=== PATIENT | male | born 1950 | race Caucasian/White ===

== ENCOUNTER 2016-07-09 03:04 | Emergency (ER) | payer MEDICARE, OTHER ==
[2016-07-09] MEDS ORDERED: Sodium Chloride 0.9% 10 ML Syringe FLUSH PRN (03:13)
[2016-07-09] MEDS ORDERED: Sodium Chloride 0.9% 1,000 ML IV SCH (03:15)
--- NOTE | 2016-07-09 03:28 | EDM.PDOC ---
ED HPI ALTERED MENTAL STATUS - General Chief Complaint: Neuro Symptoms/Deficits Stated Complaint: Altered LOC, Snoring respirations Time Seen by Provider: 07/09/16 03:12 Source of Information: Reports: EMS, EMS notes reviewed, detention records, RN, RN notes reviewed History Limitations: Reports: No limitations - History of Present Illness INITIAL COMMENTS - FREE TEXT/NARRATIVE: Patient is brought to the ED at [facility] via EMS for altered mental status and respiratory difficulty. Baseline Mental Status: Reports: alert/confused Symptom Onset Date: 07/09/16 Symptom Onset Time: 02:20 Timing/Duration: Reports: Constant Context: Reports: found by staff Treatments ATTENDANT HONOR BAR: Reports: oxygen - Related Data Allergies/ADRs: Allergies metformin Allergy (Verified 04/08/16 17:32) Muscle Aches Penicillins Allergy (Verified 04/08/16 17:32) Rash Home Meds: Home Meds Clopidogrel [Plavix] 75 mg PO DAILY #30 tablet 08/31/14 [Rx] Linagliptin [Tradjenta] 5 mg PO DAILY 08/31/14 [History] Metoprolol Tartrate [Lopressor] 50 mg PO BID 08/31/14 [History] Sertraline [Zoloft] 200 mg PO DAILY 08/31/14 [History] Simvastatin [Zocor] 40 mg PO BEDTIME 08/31/14 [History] Triamcinolone Acetonide [Kenalog 0.1% Crm] 15 gm .XX BID PRN 08/31/14 [History] glyBURIDE [Micronase] 10 mg PO BID 08/31/14 [History] Aspirin 325 mg PO DAILY 09/08/15 [History] Lisinopril 20 mg PO DAILY 09/08/15 [History] Acetaminophen [Acetaminophen 8 Hour] 650 mg PO Q4H PRN 01/12/16 [History] Nitroglycerin [Nitrostat] 0.4 mg SL ASDIRECTED PRN 01/12/16 [History] Clobetasol [Clobetasol Propionate 0.05%] 1 appful TOP BID PRN 04/08/16 [History] Past Medical History HEENT History: Reports: Macular degeneration, Other (see below) Other HEENT History: Age Related Cardiovascular History: Reports: [place], Other (see below) Other Cardiovascular History: History positive for MIs in 1995 and 2005 Other Respiratory History: Pt states he was told he had a "touch" of emphysema. Musculoskeletal History: Reports: Back pain, chronic Neurological History: Reports: CVA, TIA, Other (see below) Other Neuro History: TIA times 2 - 2013 and 2013 Psychiatric History: Reports: Anxiety, Depression, Panic attack Endocrine/Metabolic History: Reports: Diabetes, type II - Past Surgical History Cardiovascular Surgical History: Reports: Coronary artery stent Social & Family History - Family History Family Medical History: Noncontributory - Tobacco Use Smoking Status *Q: Never Smoker Used Tobacco, but Quit: No Month Tobacco Last Used: 1778 Second Hand Smoke Exposure: No - Alcohol Use Days Per Week of Alcohol Use: 0 - Recreational Drug Use Recreational Drug Use: No ED ROS GENERAL - Review of Systems Review Of Systems: Unable To Obtain - Physical Exam Exam: See Below Exam Limited By: Altered mental status General Appearance: no apparent distress, obtunded Eye Exam: bilateral eye: normal inspection, PERRL Throat/Mouth: Normal inspection, Normal oropharynx, No airway compromise Head Exam: atraumatic, normocephalic Respiratory/Chest: no respiratory distress, lungs clear, normal breath sounds, other (snoring respirations but no respiratory distress) Cardiovascular: normal peripheral pulses, regular rate, rhythm GI/Abdominal: normal bowel sounds, soft, non tender, no distention Neuro Exam (Abbreviated): unresponsive Skin Exam: Warm, Dry, Intact, Normal color, No rash EKG INTERPRETATION EKG Date: 07/09/16 Time: 03:45 Rhythm: NSR Rate (beats/min): 73 [place]: normal P-wave: present QRS: normal ST-T: normal QT: normal CA/PQ Interval: 0.14 Comparison: no change EKG Interpretation Comments: 1. NSR 2. Normal ECG Course - Vital Signs Last Recorded V/S: Last Vital Signs Temp 35.6 C 07/09/16 03:14 Pulse 73 07/09/16 03:14 Resp 24 H 07/09/16 03:14 BP 162/88 H 07/09/16 03:14 Pulse Ox 99 07/09/16 03:14 - Orders/Labs/Meds Orders: Active Orders 24 hr Category Date Time Status EKG 12 Lead [EKG Documentation Completion] [RC] STAT Care 07/09/16 03:14 Active Insert Rosado Catheter [Insert Urinary Catheter] [OM.PC] Care 07/09/16 03:30 Ordered Q24H Urinary Catheter Assessment [RC] ASDIRECTED Care 07/09/16 03:16 Active Chest 1V Frontal [CR] Stat Exams 07/09/16 03:12 Taken Head wo Cont [CT] Stat Exams 07/09/16 03:12 Taken AMMONIA [REF] Stat Lab 07/09/16 03:20 Received C-REACTIVE PROTEIN [CHEM] Stat Lab 07/09/16 03:20 Results CK W CKMB [CHEM] Stat Lab 07/09/16 03:20 Results COMPREHENSIVE METABOLIC PN,CMP [CHEM] Stat Lab 07/09/16 03:20 Results Sodium Chloride 0.9% [Normal Saline] 1,000 ml Med 07/09/16 03:15 Active IV ASDIRECTED Sodium Chloride 0.9% [Saline Flush] Med 07/09/16 03:13 Active 10 ml FLUSH ASDIRECTED PRN Peripheral IV Insertion Adult [OM.PC] Routine Oth 07/09/16 03:13 Ordered Medication Orders Sodium Chloride (Normal Saline) 1,000 mls @ 30 mls/hr IV ASDIRECTED NILES Last Admin: 07/09/16 03:15 Dose: 30 mls/hr Sodium Chloride (Saline Flush) 10 ml FLUSH ASDIRECTED PRN PRN Reason: Keep Vein Open Labs: Laboratory Tests 07/09/16 07/09/16 07/09/16 Range/Units 03:20 03:20 03:20 WBC 3.9 L (4.0-10.0) x10^3/uL RBC 3.41 L (4.5-6.0) x10^6/uL Hgb 10.1 L (14.0-18.0) g/dL Hct 30.3 L (40.0-52.0) % MCV 88.9 (78.0-93.0) fL MCH 29.6 (26.0-32.0) pg MCHC 33.3 (32.0-36.0) g/dL RDW Coeff of Tania 14.6 (10.0-15.0) % Plt Count 82 L (130-400) x10^3/uL Neut % (Auto) 69.2 (50.0-80.0) % Lymph % (Auto) 18.1 L (25.0-50.0) % [place] % (Auto) 8.3 (2.0-11.0) % Eos % (Auto) 3.9 (0.0-4.0) % Baso % (Auto) 0.5 (0.2-1.2) % PT 11.1 (10.0-12.8) SEC INR 1.0 L (2.0-3.5) POC ABG pH (7.35-7.45) POC ABG pCO2 (35-45) mmHG POC ABG pO2 (80-105) mmHG POC ABG HCO3 (22-26) mmol/L POC ABG Total CO2 (23-27) mmol/L POC ABG O2 Sat (95-98) % POC ABG Base Excess (-2-3) mmol/L POC FiO2 Sodium 140 (136-145) mmol/L Potassium 4.2 (3.5-5.1) mmol/L Chloride 104 (98-107) mmol/L Carbon Dioxide 28 (21-32) mmol/L BUN 34 H (7-18) mg/dL Creatinine 0.8 (0.70-1.30) mg/dL Est Cr Clr Drug Dosing TNP Estimated GFR (MDRD) > 60 Glucose 239 H (74-106) mg/dL Lactic Acid (0.4-2.0) mmol/L Calcium 8.9 (8.5-10.1) mg/dL Corrected Calcium 9.22 (8.5-10.1) mg/dL Total Bilirubin 0.5 (0.2-1.0) mg/dL AST 22 (15-37) U/L ALT 36 (16-63) U/L Alkaline Phosphatase 88 (46-116) U/L Creatine Kinase 46 (39-308) U/L Creatine Kinase Index 1.1 (0.0-4.0) % CK-MB (CK-2) 0.5 (0.0-3.6) ng/mL POC Troponin I (0.00-0.08) ng/mL Total Protein 6.6 (6.4-8.2) g/dL Albumin 3.6 (3.4-5.0) g/dL Globulin 3.0 Albumin/Globulin Ratio 1.20 Urine Color (YELLOW) Urine Appearance (CLEAR) Urine pH (5.0-8.0) Ur Specific [place] Urine Protein (NEGATIVE) mg/dL Urine Glucose (UA) (NEGATIVE) mg/dL Urine Ketones (NEGATIVE) mg/dL Urine Occult Blood (NEGATIVE) Urine Nitrite (NEGATIVE) Urine Bilirubin (NEGATIVE) Urine Urobilinogen (0.2) EU/dL Ur Leukocyte Esterase (NEGATIVE) Urine RBC (NOT SEEN) /HPF Urine WBC (NOT SEEN) /HPF Ur Transition Epith Cell (NEGATIVE) /HPF Amorphous Sediment Urine Bacteria (NEGATIVE) /HPF Urine Mucus (NEGATIVE) /LPF Urine Opiates Screen (NEAGTIVE) Ur Buprenorphine Scrn (NEGATIVE) Ur Oxycodone Screen (NEGATIVE) Urine Methadone Screen (NEGATIVE) Ur Barbiturates Screen (NEGATIVE) Ur Tricyclics Screen (NEGATIVE) Ur Amphetamine Screen (NEGATIVE) U Methamphetamines Scrn (NEGATIVE) Urine MDMA Screen (NEGATIVE) U Benzodiazepines Scrn (NEGATIVE) U Cocaine Metab Screen (NEGATIVE) U Marijuana (THC) Screen (NEGATIVE) 07/09/16 07/09/16 07/09/16 Range/Units 03:20 03:37 03:55 WBC (4.0-10.0) x10^3/uL RBC (4.5-6.0) x10^6/uL Hgb (14.0-18.0) g/dL Hct (40.0-52.0) % MCV (78.0-93.0) fL MCH (26.0-32.0) pg MCHC (32.0-36.0) g/dL RDW Coeff of Tania (10.0-15.0) % Plt Count (130-400) x10^3/uL Neut % (Auto) (50.0-80.0) % Lymph % (Auto) (25.0-50.0) % [place] % (Auto) (2.0-11.0) % Eos % (Auto) (0.0-4.0) % Baso % (Auto) (0.2-1.2) % PT (10.0-12.8) SEC INR (2.0-3.5) POC ABG pH (7.35-7.45) POC ABG pCO2 (35-45) mmHG POC ABG pO2 (80-105) mmHG POC ABG HCO3 (22-26) mmol/L POC ABG Total CO2 (23-27) mmol/L POC ABG O2 Sat (95-98) % POC ABG Base Excess (-2-3) mmol/L POC FiO2 Sodium (136-145) mmol/L Potassium (3.5-5.1) mmol/L Chloride (98-107) mmol/L Carbon Dioxide (21-32) mmol/L BUN (7-18) mg/dL Creatinine (0.70-1.30) mg/dL Est Cr Clr Drug Dosing Estimated GFR (MDRD) Glucose (74-106) mg/dL Lactic Acid 1.0 (0.4-2.0) mmol/L Calcium (8.5-10.1) mg/dL Corrected Calcium (8.5-10.1) mg/dL Total Bilirubin (0.2-1.0) mg/dL AST (15-37) U/L ALT (16-63) U/L Alkaline Phosphatase (46-116) U/L Creatine Kinase (39-308) U/L Creatine Kinase Index (0.0-4.0) % CK-MB (CK-2) (0.0-3.6) ng/mL POC Troponin I 0.00 (0.00-0.08) ng/mL Total Protein (6.4-8.2) g/dL Albumin (3.4-5.0) g/dL Globulin Albumin/Globulin Ratio Urine Color (YELLOW) Urine Appearance (CLEAR) Urine pH (5.0-8.0) Ur Specific [place] Urine Protein (NEGATIVE) mg/dL Urine Glucose (UA) (NEGATIVE) mg/dL Urine Ketones (NEGATIVE) mg/dL Urine Occult Blood (NEGATIVE) Urine Nitrite (NEGATIVE) Urine Bilirubin (NEGATIVE) Urine Urobilinogen (0.2) EU/dL Ur Leukocyte Esterase (NEGATIVE) Urine RBC (NOT SEEN) /HPF Urine WBC (NOT SEEN) /HPF Ur Transition Epith Cell (NEGATIVE) /HPF Amorphous Sediment Urine Bacteria (NEGATIVE) /HPF Urine Mucus (NEGATIVE) /LPF Urine Opiates Screen Negative (NEAGTIVE) Ur Buprenorphine Scrn Negative (NEGATIVE) Ur Oxycodone Screen Negative (NEGATIVE) Urine Methadone Screen Negative (NEGATIVE) Ur Barbiturates Screen Negative (NEGATIVE) Ur Tricyclics Screen Negative (NEGATIVE) Ur Amphetamine Screen Negative (NEGATIVE) U Methamphetamines Scrn Negative (NEGATIVE) Urine MDMA Screen Negative (NEGATIVE) U Benzodiazepines Scrn Negative (NEGATIVE) U Cocaine Metab Screen Negative (NEGATIVE) U Marijuana (THC) Screen Negative (NEGATIVE) 07/09/16 07/09/16 Range/Units 03:55 04:00 WBC (4.0-10.0) x10^3/uL RBC (4.5-6.0) x10^6/uL Hgb (14.0-18.0) g/dL Hct (40.0-52.0) % MCV (78.0-93.0) fL MCH (26.0-32.0) pg MCHC (32.0-36.0) g/dL RDW Coeff of Tania (10.0-15.0) % Plt Count (130-400) x10^3/uL Neut % (Auto) (50.0-80.0) % Lymph % (Auto) (25.0-50.0) % [place] % (Auto) (2.0-11.0) % Eos % (Auto) (0.0-4.0) % Baso % (Auto) (0.2-1.2) % PT (10.0-12.8) SEC INR (2.0-3.5) POC ABG pH 7.414 (7.35-7.45) POC ABG pCO2 41 (35-45) mmHG POC ABG pO2 103 (80-105) mmHG POC ABG HCO3 26 (22-26) mmol/L POC ABG Total CO2 28 H (23-27) mmol/L POC ABG O2 Sat 98 (95-98) % POC ABG Base Excess 2 (-2-3) mmol/L POC FiO2 0.28 Sodium (136-145) mmol/L Potassium (3.5-5.1) mmol/L Chloride (98-107) mmol/L Carbon Dioxide (21-32) mmol/L BUN (7-18) mg/dL Creatinine (0.70-1.30) mg/dL Est Cr Clr Drug Dosing Estimated GFR (MDRD) Glucose (74-106) mg/dL Lactic Acid (0.4-2.0) mmol/L Calcium (8.5-10.1) mg/dL Corrected Calcium (8.5-10.1) mg/dL Total Bilirubin (0.2-1.0) mg/dL AST (15-37) U/L ALT (16-63) U/L Alkaline Phosphatase (46-116) U/L Creatine Kinase (39-308) U/L Creatine Kinase Index (0.0-4.0) % CK-MB (CK-2) (0.0-3.6) ng/mL POC Troponin I (0.00-0.08) ng/mL Total Protein (6.4-8.2) g/dL Albumin (3.4-5.0) g/dL Globulin Albumin/Globulin Ratio Urine Color Dark yellow H (YELLOW) Urine Appearance Slightly cloudy H (CLEAR) Urine pH 7.0 (5.0-8.0) Ur Specific [place] 1.020 Urine Protein 30 H (NEGATIVE) mg/dL Urine Glucose (UA) Negative (NEGATIVE) mg/dL Urine Ketones Negative (NEGATIVE) mg/dL Urine Occult Blood Trace-intact H (NEGATIVE) Urine Nitrite Negative (NEGATIVE) Urine Bilirubin Negative (NEGATIVE) Urine Urobilinogen 1.0 (0.2) EU/dL Ur Leukocyte Esterase Negative (NEGATIVE) Urine RBC 5-10 H (NOT SEEN) /HPF Urine WBC Not seen (NOT SEEN) /HPF Ur Transition Epith Cell Few H (NEGATIVE) /HPF Amorphous Sediment Moderate Urine Bacteria Rare (NEGATIVE) /HPF Urine Mucus Rare H (NEGATIVE) /LPF Urine Opiates Screen (NEAGTIVE) Ur Buprenorphine Scrn (NEGATIVE) Ur Oxycodone Screen (NEGATIVE) Urine Methadone Screen (NEGATIVE) Ur Barbiturates Screen (NEGATIVE) Ur Tricyclics Screen (NEGATIVE) Ur Amphetamine Screen (NEGATIVE) U Methamphetamines Scrn (NEGATIVE) Urine MDMA Screen (NEGATIVE) U Benzodiazepines Scrn (NEGATIVE) U Cocaine Metab Screen (NEGATIVE) U Marijuana (THC) Screen (NEGATIVE) Meds: Medications Generic Name Dose Route Start Last Admin Trade Name Freq PRN Reason Stop Dose Admin Sodium Chloride 1,000 mls @ 30 mls/hr 07/09/16 03:15 07/09/16 03:15 Normal Saline IV 30 mls/hr ASDIRECTED NILES Administration Sodium Chloride 10 ml 07/09/16 03:13 Saline Flush FLUSH ASDIRECTED PRN Keep Vein Open Departure - Departure Time of Disposition: 04:29 Disposition: Home, Self-Care 01 Condition: good Clinical Impression: Chronic focal neurological deficit Instructions: Altered Mental Status Forms: ED Department Discharge ED Communication - ED Communication Date/Time Date: 07/09/16 Time Called: 04:11 - Discussed Case With (1) Discussed Case With (1): Radiologist (Dr. Nazario Dorman) - Conversation Summary Radiology Reading Discussed with Radiologist: Yes Summary Comment: No acute findings on CT of Head; CT unchanged from April 2016 - Problem List Review Problem List Initiated/Reviewed/Updated: Yes - My Orders Last 24 Hours: My Active Orders 07/09/16 03:12 Chest 1V Frontal [CR] Stat Head wo Cont [CT] Stat 07/09/16 03:13 Sodium Chloride 0.9% [Saline Flush] 10 ml FLUSH ASDIRECTED PRN Peripheral IV Insertion Adult [OM.PC] Routine 07/09/16 03:14 EKG 12 Lead [EKG Documentation Completion] [RC] STAT 07/09/16 03:15 Sodium Chloride 0.9% [Normal Saline] 1,000 ml IV ASDIRECTED 07/09/16 03:16 Urinary Catheter Assessment [RC] ASDIRECTED 07/09/16 03:20 AMMONIA [REF] Stat C-REACTIVE PROTEIN [CHEM] Stat CK W CKMB [CHEM] Stat COMPREHENSIVE METABOLIC PN,CMP [CHEM] Stat 07/09/16 03:30 Insert Rosado Catheter [Insert Urinary Catheter] [OM.PC] Q24H - Assessment/Plan Last 24 Hours: My Active Orders 07/09/16 03:12 Chest 1V Frontal [CR] Stat Head wo Cont [CT] Stat 07/09/16 03:13 Sodium Chloride 0.9% [Saline Flush] 10 ml FLUSH ASDIRECTED PRN Peripheral IV Insertion Adult [OM.PC] Routine 07/09/16 03:14 EKG 12 Lead [EKG Documentation Completion] [RC] STAT 07/09/16 03:15 Sodium Chloride 0.9% [Normal Saline] 1,000 ml IV ASDIRECTED 07/09/16 03:16 Urinary Catheter Assessment [RC] ASDIRECTED 07/09/16 03:20 AMMONIA [REF] Stat C-REACTIVE PROTEIN [CHEM] Stat CK W CKMB [CHEM] Stat COMPREHENSIVE METABOLIC PN,CMP [CHEM] Stat 07/09/16 03:30 Insert Rosado Catheter [Insert Urinary Catheter] [OM.PC] Q24H Plan: Normal CT of Head. No indications on lab work. Patient's neuro status is unchanged from detention assessments.
[2016-07-09 04:13] LABS: CHLORIDE,CL 104 mmol/L (98-107); SODIUM,NA 140 mmol/L (136-145)
[2016-07-09 05:58] VITALS: BP 191/92
== END 2016-07-09 05:30 | disposition home or self-care (01) ==
LOC: VM.ED 03:04
DX: R29.818 Other symptoms and signs involving the nervous system (principal); I25.2 Old myocardial infarction; F41.9 Anxiety disorder, unspecified; F32.9 Major depressive disorder, single episode, unspecified; E11.9 Type 2 diabetes mellitus without complications; Z79.82 Long term (current) use of aspirin; Z79.899 Other long term (current) drug therapy; Z86.73 Personal history of transient ischemic attack (TIA), and cerebral infarction without residual deficits; Z88.0 Allergy status to penicillin
CPT/HCPCS: 51702; 70450; 71010; 80053; 80305; 81001; 82140; 82550; 82553; 82803; 83605; 84484; 85025; 85610; 86140; 93005; 96360; 96361; 99285; J7030; 99284-GF

== ENCOUNTER 2016-08-08 13:59 | Emergency (ER) | payer OTHER ==
[2016-08-08] MEDS ORDERED: Sodium Chloride 0.9% 10 ML Syringe FLUSH PRN (14:07)
[2016-08-08] MEDS ORDERED: Sodium Chloride 0.9% 1,000 ML IV SCH (14:15)
[2016-08-08 14:50] VITALS: BP 102/51
[2016-08-08 14:55] LABS: CHLORIDE,CL 103 mmol/L (98-107); SODIUM,NA 140 mmol/L (136-145)
[2016-08-08] MEDS ORDERED: Pantoprazole 40 MG Vial IVPUSH ONE (15:44)
[2016-08-08] MEDS ORDERED: Levofloxacin/Dextrose 5%-Water 500 MG in Premix Bag 1 BAG IV ONE (15:44)
--- NOTE | 2016-08-08 15:50 | EDM.PDOC ---
ED HISTORY OF PRESENT ILLNESS - General Chief Complaint: Respiratory Problem Stated Complaint: breathing problems Time Seen by Provider: 08/08/16 14:01 Source of Information: Reports: EMS notes reviewed, half-way records, RN, RN notes reviewed History Limitations: Reports: No limitations - History of Present Illness INITIAL COMMENTS - FREE TEXT/NARRATIVE: Patient is brought to the emergency room at [facility] via ambulance for her breathing problems, low blood pressure, and increased lethargy. According to the assisted staff and they are concerned that the patient may have aspirated. It is unclear when the patient may have aspirated. No change in medicines, no cough. The patient has been afebrile. The assisted states that the patient's blood pressures have been in the 70s and 80s. Symptom Onset Date: 08/08/16 - Related Data Allergies/ADRs: Allergies Allergy/AdvReac Type Severity Reaction Status Date / Time metformin Allergy Muscle Verified 08/08/16 14:32 Aches Penicillins Allergy Rash Verified 08/08/16 14:32 Home Meds: Home Meds Clopidogrel [Plavix] 75 mg PO DAILY #30 tablet 08/31/14 [Rx] Linagliptin [Tradjenta] 5 mg PO DAILY 08/31/14 [History] Metoprolol Tartrate [Lopressor] 50 mg PO BID 08/31/14 [History] Sertraline [Zoloft] 200 mg PO DAILY 08/31/14 [History] Simvastatin [Zocor] 40 mg PO BEDTIME 08/31/14 [History] Triamcinolone Acetonide [Kenalog 0.1% Crm] 15 gm .XX BID PRN 08/31/14 [History] glyBURIDE [Micronase] 10 mg PO BID 08/31/14 [History] Aspirin 325 mg PO DAILY 09/08/15 [History] Lisinopril 20 mg PO DAILY 09/08/15 [History] Acetaminophen [Acetaminophen 8 Hour] 650 mg PO Q4H PRN 01/12/16 [History] Nitroglycerin [Nitrostat] 0.4 mg SL ASDIRECTED PRN 01/12/16 [History] Clobetasol [Clobetasol Propionate 0.05%] 1 appful TOP BID PRN 04/08/16 [History] Omeprazole 20 mg PO DAILY #90 cap.cr 08/08/16 [Rx] Past Medical History HEENT History: Reports: Macular degeneration, Other (see below) Other HEENT History: Age Related. dysphagia Cardiovascular History: Reports: High cholesterol, Hypertension, [place], Other (see below) Other Cardiovascular History: History positive for MIs in 1995 and 2005 Respiratory History: Reports: COPD Other Respiratory History: Pt states he was told he had a "touch" of emphysema. Musculoskeletal History: Reports: Back pain, chronic Neurological History: Reports: CVA, TIA, Other (see below) Other Neuro History: TIA times - 2013 and 2013 Psychiatric History: Reports: Anxiety, Depression, Panic attack Endocrine/Metabolic History: Reports: Diabetes, type II - Past Surgical History Cardiovascular Surgical History: Reports: Coronary artery stent Social & Family History - Family History Family Medical History: Noncontributory - Tobacco Use Smoking Status *Q: Unknown Ever Smoked Used Tobacco, but Quit: No Month Tobacco Last Used: 1778 Second Hand Smoke Exposure: No - Alcohol Use Days Per Week of Alcohol Use: 0 - Recreational Drug Use Recreational Drug Use: No ED ROS GENERAL - Review of Systems Review Of Systems: ROS reveals no pertinent complaints other than HPI. ED EXAM, GENERAL - Physical Exam Exam: See Below Exam Limited By: Altered mental status General Appearance: alert, no apparent distress, lethargic Respiratory/Chest: no respiratory distress, lungs clear, normal breath sounds Cardiovascular: regular rate, rhythm Peripheral Pulses: 1+: radial (L), radial (R) GI/Abdominal: normal bowel sounds, soft, non tender Extremities: normal inspection Neurological: slow to respond (patient does not speak; makes gestures with eyes) Skin Exam: Warm, Dry, Intact, Normal color, No rash Course - Vital Signs Last Recorded V/S: Last Vital Signs Temp 37.2 C 08/08/16 14:00 Pulse 76 08/08/16 14:00 Resp 24 H 08/08/16 14:00 BP 102/51 L 08/08/16 14:00 Pulse Ox 97 08/08/16 15:03 - Orders/Labs/Meds Orders: Active Orders 24 hr Category Date Time Status EKG 12 Lead [EKG Documentation Completion] [RC] STAT Care 08/08/16 14:06 Active Oxygen Therapy Adult [Oxygen Therapy, ED] [] Care 08/08/16 14:09 Active ASDIRECTED Chest 1V Frontal [CR] Stat Exams 08/08/16 14:07 Taken CULTURE BLOOD [BC] Stat Lab 08/08/16 14:24 Results CULTURE BLOOD [BC] Stat Lab 08/08/16 14:33 Results Levofloxacin/Dextrose 5%-Water [Levaquin in D5W 500 MG/ Med 08/08/16 15:44 Ordered 100 ML] 500 mg Premix Bag 1 bag IV ONETIME Pantoprazole [ProTONIX IV] Med 08/08/16 15:44 Once 40 mg IVPUSH ONETIME ONE Sodium Chloride 0.9% [Normal Saline] 1,000 ml Med 08/08/16 14:15 Active IV ASDIRECTED Sodium Chloride 0.9% [Saline Flush] Med 08/08/16 14:07 Active 10 ml FLUSH ASDIRECTED PRN Blood Culture x2 Reflex Set [OM.PC] Stat Oth 08/08/16 14:06 Ordered Peripheral IV Insertion Adult [OM.PC] Routine Oth 08/08/16 14:07 Ordered Medication Orders Sodium Chloride (Normal Saline) 1,000 mls @ 999 mls/hr IV ASDIRECTED NILES Levofloxacin/Dextrose 500 mg/ (Premix) 100 mls @ 100 mls/hr IV ONETIME ONE Stop: 08/08/16 16:43 Sodium Chloride (Saline Flush) 10 ml FLUSH ASDIRECTED PRN PRN Reason: Keep Vein Open Labs: Laboratory Tests 08/08/16 08/08/16 08/08/16 Range/Units 14:24 14:24 14:24 WBC 7.7 (4.0-10.0) x10^3/uL RBC 3.09 L (4.5-6.0) x10^6/uL Hgb 9.1 L (14.0-18.0) g/dL Hct 27.6 L (40.0-52.0) % MCV 89.3 (78.0-93.0) fL MCH 29.4 (26.0-32.0) pg MCHC 33.0 (32.0-36.0) g/dL RDW Coeff of Tania 13.2 (10.0-15.0) % Plt Count 79 L (130-400) x10^3/uL Neut % (Auto) 92.2 H (50.0-80.0) % Lymph % (Auto) 1.0 L (25.0-50.0) % [place] % (Auto) 6.6 (2.0-11.0) % Eos % (Auto) 0.1 (0.0-4.0) % Baso % (Auto) 0.1 L (0.2-1.2) % Sodium 140 (136-145) mmol/L Potassium 4.3 (3.5-5.1) mmol/L Chloride 103 (98-107) mmol/L Carbon Dioxide 29 (21-32) mmol/L BUN 39 H (7-18) mg/dL Creatinine 1.2 (0.70-1.30) mg/dL Est Cr Clr Drug Dosing TNP Estimated GFR (MDRD) > 60 Glucose 138 H (74-106) mg/dL Lactic Acid 2.3 H (0.4-2.0) mmol/L Calcium 8.6 (8.5-10.1) mg/dL C-Reactive Protein 3.1 H (<=0.9) mg/dL Meds: Medications Generic Name Dose Route Start Last Admin Trade Name Freq PRN Reason Stop Dose Admin Sodium Chloride 1,000 mls @ 999 mls/hr 08/08/16 14:15 Normal Saline IV ASDIRECTED NILES Levofloxacin/Dextrose 500 mg/ 100 mls @ 100 mls/hr 08/08/16 15:44 Premix IV 08/08/16 16:43 ONETIME ONE Sodium Chloride 10 ml 08/08/16 14:07 Saline Flush FLUSH ASDIRECTED PRN Keep Vein Open Departure - Departure Time of Disposition: 15:48 Disposition: Home, Self-Care 01 Condition: fair Clinical Impression: Lung infiltrate Prescriptions: Omeprazole 20 mg PO DAILY #90 cap.cr Forms: ED Department Discharge Additional Instructions: 1. half-way staff to call Dr. Garay on Wednesday August 10, 2016 and give an update. ED Communication - ED Communication Date/Time Date: 08/08/16 Time Called: 15:47 - Discussed Case With (1) Discussed Case With (1): Outpatient Provider Person/s Notified (1): Carolann Garay - Conversation Summary Patient's POA/Guardian Aware of Amendments to Care Plan: Yes Summary Comment: Case discussed with Dr. Garay, PCP. Patient will get a dose of Levaquin and started on a PPI and return to assisted. - Problem List Review Problem List Initiated/Reviewed/Updated: Yes - My Orders Last 24 Hours: My Active Orders 08/08/16 14:06 EKG 12 Lead [EKG Documentation Completion] [RC] STAT Blood Culture x2 Reflex Set [OM.PC] Stat 08/08/16 14:07 Chest 1V Frontal [CR] Stat Sodium Chloride 0.9% [Saline Flush] 10 ml FLUSH ASDIRECTED PRN Peripheral IV Insertion Adult [OM.PC] Routine 08/08/16 14:09 Oxygen Therapy Adult [Oxygen Therapy, ED] [RC] ASDIRECTED 08/08/16 14:15 Sodium Chloride 0.9% [Normal Saline] 1,000 ml IV ASDIRECTED 08/08/16 14:24 CULTURE BLOOD [BC] Stat 08/08/16 14:33 CULTURE BLOOD [BC] Stat 08/08/16 15:44 Levofloxacin/Dextrose 5%-Water [Levaquin in D5W 500 MG/100 ML] 500 mg Premix Bag 1 bag IV ONETIME Pantoprazole [ProTONIX IV] 40 mg IVPUSH ONETIME ONE - Assessment/Plan Last 24 Hours: My Active Orders 08/08/16 14:06 EKG 12 Lead [EKG Documentation Completion] [RC] STAT Blood Culture x2 Reflex Set [OM.PC] Stat 08/08/16 14:07 Chest 1V Frontal [CR] Stat Sodium Chloride 0.9% [Saline Flush] 10 ml FLUSH ASDIRECTED PRN Peripheral IV Insertion Adult [OM.PC] Routine 08/08/16 14:09 Oxygen Therapy Adult [Oxygen Therapy, ED] [RC] ASDIRECTED 08/08/16 14:15 Sodium Chloride 0.9% [Normal Saline] 1,000 ml IV ASDIRECTED 08/08/16 14:24 CULTURE BLOOD [BC] Stat 08/08/16 14:33 CULTURE BLOOD [BC] Stat 08/08/16 15:44 Levofloxacin/Dextrose 5%-Water [Levaquin in D5W 500 MG/100 ML] 500 mg Premix Bag 1 bag IV ONETIME Pantoprazole [ProTONIX IV] 40 mg IVPUSH ONETIME ONE
== END 2016-08-08 17:55 | disposition home or self-care (01) ==
LOC: VM.ED 13:59
DX: R91.8 Other nonspecific abnormal finding of lung field (principal); E11.9 Type 2 diabetes mellitus without complications; J44.9 Chronic obstructive pulmonary disease, unspecified; E78.00 Pure hypercholesterolemia, unspecified; I10 Essential (primary) hypertension; I25.2 Old myocardial infarction; Z79.899 Other long term (current) drug therapy; Z79.82 Long term (current) use of aspirin; Z86.73 Personal history of transient ischemic attack (TIA), and cerebral infarction without residual deficits; Z88.0 Allergy status to penicillin; Z88.8 Allergy status to other drugs, medicaments and biological substances; F41.9 Anxiety disorder, unspecified; F32.9 Major depressive disorder, single episode, unspecified
CPT/HCPCS: 36415; 71010; 80048; 83605; 83880; 85025; 86140; 87040; 87077; 93005; 96365; 99285; C9113; J1956; 87147; 87186; 99284-GF

== ENCOUNTER 2016-08-09 18:24 | Emergency (ER) | payer OTHER ==
[2016-08-09] MEDS ORDERED: Levofloxacin/Dextrose 5%-Water 500 MG in Premix Bag 1 BAG IV ONE (18:50)
[2016-08-09] MEDS ORDERED: methylPREDNISolone Sodium Succinate 125 MG/2 ML SDV IVPUSH ONE (18:50)
[2016-08-09] MEDS ORDERED: Albuterol/Ipratropium 3.0-0.5 MG/3 ML Neb Soln NEB ONE (19:05)
[2016-08-09] MEDS ORDERED: Sodium Chloride 0.9% 1,000 ML IV SCH (19:15)
[2016-08-09 19:38] LABS: CHLORIDE,CL 103 mmol/L (98-107); SODIUM,NA 138 mmol/L (136-145)
[2016-08-09] MEDS ORDERED: Furosemide 40 MG/4 ML VIAL IVPUSH ONE (19:44)
--- NOTE | 2016-08-09 19:56 | EDM.PDOC ---
ED HISTORY OF PRESENT ILLNESS - General Chief Complaint: Respiratory Problem Stated Complaint: Respiratory Distress Time Seen by Provider: 08/09/16 18:34 Source of Information: Reports: Family, [facility] records, Old records, RN notes reviewed, Significant Other History Limitations: Reports: No limitations - History of Present Illness INITIAL COMMENTS - FREE TEXT/NARRATIVE: Patient brought here from the care center. He was seen yesterday at this ER, diagnosed with pneumonia, given IV levaquin and sent back on 2L oxygen. EMS was called there today due to increased oxygen to 5L and sats in the 80's. Has history of cva with bilateral residual contractures, difficulty swallowing, aphasia, tube feeds. Additional medical HX includes HTN, diabetes, CAD, depression. He is non verbal but can nod or shake his head. Timing/Duration: Reports: Getting worse Severity: moderate Location, General: Reports: chest Associated Symptoms (General): Reports: shortness of breath - Related Data Allergies/ADRs: Allergies Allergy/AdvReac Type Severity Reaction Status Date / Time metformin Allergy Muscle Verified 08/09/16 19:37 Aches Penicillins Allergy Rash Verified 08/09/16 19:37 Home Meds: Home Meds Clopidogrel [Plavix] 75 mg PO DAILY #30 tablet 08/31/14 [Rx] Linagliptin [Tradjenta] 5 mg PO DAILY 08/31/14 [History] Metoprolol Tartrate [Lopressor] 50 mg PO BID 08/31/14 [History] Sertraline [Zoloft] 200 mg PO DAILY 08/31/14 [History] Simvastatin [Zocor] 40 mg PO BEDTIME 08/31/14 [History] Triamcinolone Acetonide [Kenalog 0.1% Crm] 15 gm .XX BID PRN 08/31/14 [History] glyBURIDE [Micronase] 10 mg PO BID 08/31/14 [History] Aspirin 325 mg PO DAILY 09/08/15 [History] Lisinopril 20 mg PO DAILY 09/08/15 [History] Acetaminophen [Acetaminophen 8 Hour] 650 mg PO Q4H PRN 01/12/16 [History] Nitroglycerin [Nitrostat] 0.4 mg SL ASDIRECTED PRN 01/12/16 [History] Clobetasol [Clobetasol Propionate 0.05%] 1 appful TOP BID PRN 04/08/16 [History] Omeprazole 20 mg PO DAILY #90 cap.cr 08/08/16 [Rx] Past Medical History HEENT History: Reports: Macular degeneration, Other (see below) Other HEENT History: Age Related. dysphagia Cardiovascular History: Reports: High cholesterol, Hypertension, [place], Other (see below) Other Cardiovascular History: History positive for MIs in 1995 and 2005 Respiratory History: Reports: COPD Other Respiratory History: Pt states he was told he had a "touch" of emphysema. Musculoskeletal History: Reports: Back pain, chronic Neurological History: Reports: CVA, TIA, Other (see below) Other Neuro History: TIA times - 2013 and 2013 Psychiatric History: Reports: Anxiety, Depression, Panic attack Endocrine/Metabolic History: Reports: Diabetes, type II - Past Surgical History Cardiovascular Surgical History: Reports: Coronary artery stent Social & Family History - Family History Family Medical History: Noncontributory - Tobacco Use Smoking Status *Q: Unknown Ever Smoked Used Tobacco, but Quit: No Month Tobacco Last Used: 1778 Second Hand Smoke Exposure: No - Alcohol Use Days Per Week of Alcohol Use: 0 - Recreational Drug Use Recreational Drug Use: No ED ROS GENERAL - Review of Systems Review Of Systems: See Below Constitutional: Reports: no symptoms HEENT: Reports: No symptoms Respiratory: Reports: Shortness of Breath Cardiovascular: Reports: No symptoms Endocrine: Reports: no symptoms GI/Abdominal: Reports: No symptoms : Reports: no symptoms Musculoskeletal: Reports: no symptoms Skin: Reports: no symptoms Neurological: Reports: No Symptoms Psychiatric: Reports: No symptoms Hematologic/Lymphatic: Reports: no symptoms Immunologic: Reports: no symptoms ED EXAM, GENERAL - Physical Exam Exam: See Below Exam Limited By: Physical impairment General Appearance: alert, moderate distress Eye Exam: bilateral eye: EOMI, PERRL Ears: normal TMs (cerumen removed left ear) Throat/Mouth: Normal inspection, Normal oropharynx, No airway compromise Head: atraumatic, normocephalic Neck: normal inspection Respiratory/Chest: respiratory distress, rhonchi Course - Vital Signs Last Recorded V/S: Last Vital Signs Temp 36.9 C 08/09/16 19:40 Pulse 84 08/09/16 19:40 Resp 36 H 08/09/16 19:40 BP 118/61 08/09/16 19:40 Pulse Ox 84 L 08/09/16 19:40 - Orders/Labs/Meds Orders: Active Orders 24 hr Category Date Time Status BIPAP [RT BiPAP/CPAP] [RC] ASDIRECTED Care 08/09/16 19:45 Ordered RT Aerosol Therapy [RC] ASDIRECTED Care 08/09/16 19:05 Ordered Chest 1V Frontal [CR] Stat Exams 08/09/16 18:34 Ordered UA W/MICROSCOPIC [URIN] Stat Lab 08/09/16 18:34 Uncollected Sodium Chloride 0.9% @ 125 MLS/HR (1000ml) Med 08/09/16 19:15 Ordered Sodium Chloride 0.9% [Normal Saline] 1,000 ml IV ASDIRECTED Medication Orders Sodium Chloride (Normal Saline) 1,000 mls @ 125 mls/hr IV ASDIRECTED NILES Last Admin: 08/09/16 19:18 Dose: 125 mls/hr Labs: Laboratory Tests 08/09/16 08/09/16 08/09/16 Range/Units 19:05 19:05 19:05 WBC 3.6 L (4.0-10.0) x10^3/uL RBC 2.77 L (4.5-6.0) x10^6/uL Hgb 8.2 L (14.0-18.0) g/dL Hct 24.8 L (40.0-52.0) % MCV 89.5 (78.0-93.0) fL MCH 29.6 (26.0-32.0) pg MCHC 33.1 (32.0-36.0) g/dL RDW Coeff of Tania 13.5 (10.0-15.0) % Plt Count 60 L (130-400) x10^3/uL Add Manual Diff Yes Neutrophils % (Manual) 70 (50-80) % Band Neutrophils % 10 H (0-6) % Lymphocytes % (Manual) 12 L (25-50) % Monocytes % (Manual) 3 (2-11) % Metamyelocytes % 5 H (0) % Toxic Granulation 2+ moderate H Platelet Estimate Decreased L Polychromasia 1+ slight H Microcytosis 1+ slight H Macrocytosis Rare Spherocytes Rare Ovalocytes Rare Helmet Cells Rare Sodium 138 (136-145) mmol/L Potassium 4.2 (3.5-5.1) mmol/L Chloride 103 (98-107) mmol/L Carbon Dioxide 27 (21-32) mmol/L BUN 65 H (7-18) mg/dL Creatinine 1.6 H (0.70-1.30) mg/dL Est Cr Clr Drug Dosing TNP Estimated GFR (MDRD) 43 Glucose 132 H (74-106) mg/dL Lactic Acid (0.4-2.0) mmol/L Calcium 8.4 L (8.5-10.1) mg/dL C-Reactive Protein 35.0 H (<=0.9) mg/dL B-Natriuretic Peptide 7127 H (<=125) pg/mL 08/09/16 Range/Units 19:05 WBC (4.0-10.0) x10^3/uL RBC (4.5-6.0) x10^6/uL Hgb (14.0-18.0) g/dL Hct (40.0-52.0) % MCV (78.0-93.0) fL MCH (26.0-32.0) pg MCHC (32.0-36.0) g/dL RDW Coeff of Tania (10.0-15.0) % Plt Count (130-400) x10^3/uL Add Manual Diff Neutrophils % (Manual) (50-80) % Band Neutrophils % (0-6) % Lymphocytes % (Manual) (25-50) % Monocytes % (Manual) (2-11) % Metamyelocytes % (0) % Toxic Granulation Platelet Estimate Polychromasia Microcytosis Macrocytosis Spherocytes Ovalocytes Helmet Cells Sodium (136-145) mmol/L Potassium (3.5-5.1) mmol/L Chloride (98-107) mmol/L Carbon Dioxide (21-32) mmol/L BUN (7-18) mg/dL Creatinine (0.70-1.30) mg/dL Est Cr Clr Drug Dosing Estimated GFR (MDRD) Glucose (74-106) mg/dL Lactic Acid 1.1 (0.4-2.0) mmol/L Calcium (8.5-10.1) mg/dL C-Reactive Protein (<=0.9) mg/dL B-Natriuretic Peptide (<=125) pg/mL Meds: Medications Generic Name Dose Route Start Last Admin Trade Name Freq PRN Reason Stop Dose Admin Sodium Chloride 1,000 mls @ 125 mls/hr 08/09/16 19:15 08/09/16 19:18 Normal Saline IV 125 mls/hr ASDIRECTED NILES Administration Discontinued Medications Generic Name Dose Route Start Last Admin Trade Name Delaney PRN Reason Stop Dose Admin Albuterol/Ipratropium 3 ml 08/09/16 19:05 08/09/16 19:14 Duoneb 3.0-0.5 Mg/3 Ml NEB 08/09/16 19:06 3 ml ONETIME ONE Administration Furosemide 40 mg 08/09/16 19:44 Lasix IVPUSH 08/09/16 19:45 NOW ONE Levofloxacin/Dextrose 500 mg/ 100 mls @ 100 mls/hr 08/09/16 18:50 08/09/16 19 :18 Premix IV 08/09/16 19:49 100 mls/hr ONETIME ONE Administration Methylprednisolone Sodium Succinate 125 mg 08/09/16 18:50 08/09/16 19:10 Solu-Medrol IVPUSH 08/09/16 18:51 125 mg ONETIME ONE Administration - Re-Assessments/Exams Free Text/Narrative Re-Assessment/Exam: 08/09/16 20:53 X-ray ordered for comparison. Today shows worsening bilateral atelactesis and infiltrates, right sided effusion. He was initially placed on 12L non rebreather, then switched to bipap. Settings 12/6, 100% FIO2, sats at 95%. RR 28-30. [facility] contacted for transfer, no available beds. [facility] did accept by Dr. Gonzalez. Transfer by ambulance. Departure - Departure Time of Disposition: 20:58 Disposition: DC/Tfer to Other 70 Condition: fair Clinical Impression: Congestive heart failure, Pneumonia, DM2 (diabetes mellitus, type 2), H/O: CVA (cerebrovascular accident), Hypertension Forms: ED Department Discharge, Interfacility Transfer EMTALA - My Orders Last 24 Hours: My Active Orders 08/09/16 18:34 Chest 1V Frontal [CR] Stat UA W/MICROSCOPIC [URIN] Stat 08/09/16 19:05 RT Aerosol Therapy [RC] ASDIRECTED 08/09/16 19:15 Sodium Chloride 0.9% @ 125 MLS/HR (1000ml) Sodium Chloride 0.9% [Normal Saline] 1,000 ml IV ASDIRECTED 08/09/16 19:45 BIPAP [RT BiPAP/CPAP] [RC] ASDIRECTED - Assessment/Plan Last 24 Hours: My Active Orders 08/09/16 18:34 Chest 1V Frontal [CR] Stat UA W/MICROSCOPIC [URIN] Stat 08/09/16 19:05 RT Aerosol Therapy [RC] ASDIRECTED 08/09/16 19:15 Sodium Chloride 0.9% @ 125 MLS/HR (1000ml) Sodium Chloride 0.9% [Normal Saline] 1,000 ml IV ASDIRECTED 08/09/16 19:45 BIPAP [RT BiPAP/CPAP] [RC] ASDIRECTED
[2016-08-09 20:42] VITALS: BP 105/60
== END 2016-08-09 21:13 | disposition other institution (70) ==
LOC: VM.ED 18:24
DX: J18.9 Pneumonia, unspecified organism (principal); I11.0 Hypertensive heart disease with heart failure; I50.9 Heart failure, unspecified; I25.10 Atherosclerotic heart disease of native coronary artery without angina pectoris; E11.9 Type 2 diabetes mellitus without complications; E78.00 Pure hypercholesterolemia, unspecified; I25.2 Old myocardial infarction; Z88.8 Allergy status to other drugs, medicaments and biological substances; Z88.1 Allergy status to other antibiotic agents; Z79.899 Other long term (current) drug therapy
CPT/HCPCS: 36415; 36600; 69210; 71010; 80048; 81001; 82803; 83605; 83880; 85025; 86140; 94660; 96365; 96366; 96368; 96375; 99285; J1940; J1956; J2930; J7030; 94640